=== PATIENT | female | born 1960 | race Caucasian/White ===

== ENCOUNTER 2023-06-11 11:53 | Outpatient (CLI) | payer MEDICARE, OTHER, SELFPAY ==
--- NOTE | ~2023-06-11 | XR_ITS ---
EXAMINATION: XR abdomen/kub 1V INDICATION: Left-sided kidney stone, right flank pain TECHNIQUE: Supine views of the abdomen were obtained on 2 radiographs. COMPARISON: None FINDINGS: Bowel contents project over the kidneys limiting sensitivity for renal stones. A 3 mm calci fication projects in the expected location of the proximal right ureter just above the right L5 trans verse process. There are phleboliths of the pelvis. A 4 mm calcification of the left pelvis is indete rminate in location. The lung bases are clear. Osteitis pubis is noted. There is moderate lower lumba r spondylosis. IMPRESSION: 1. Possible 3 mm right ureteral stone. 2. 4 mm calcification of the left pelvis indeterminate in location. Correlation with any available pr ior imaging is recommended. Reviewed, dictated and finalized at location A. IMPRESSION: 1. Possible 3 mm right ureteral stone. 2. 4 mm calcification of the left pelvis indeterminate in location. Correlation with any available prior imaging is recommended.
== END 2023-06-11 11:54 | disposition home or self-care (01) ==
LOC: ANHIMG 12:03
PROVIDERS: Visit Provider Urology
DX: N20.0 Calculus of kidney (principal)
CPT/HCPCS: 74018